=== PATIENT | male | born 1970 | race Caucasian/White ===

== ENCOUNTER 2017-08-23 12:11 | Emergency (ER) | payer SELFPAY ==
[~2017-08-23] VITALS: Ht 193 cm; Wt 86.4 kg
[2017-08-23 12:12] VITALS: BP 120/77
[2017-08-23] MEDS ORDERED: MUCI600T37 PO (13:39)
[2017-08-23] MEDS ORDERED: AUGM875T28 PO (13:39)
[2017-08-23] MEDS ORDERED: CLAR1TAB2 PO (13:39)
[2017-08-23] MEDS ORDERED: AUGMENTIN 875 MG TAB PO ONE (13:45)
== END 2017-08-23 13:52 | disposition home or self-care (01) ==
LOC: M ED 12:11
DX: J01.90 Acute sinusitis, unspecified (principal); G50.1 Atypical facial pain; R07.0 Pain in throat